=== PATIENT | female | born 1960 | race Asian ===

== ENCOUNTER 2019-01-10 08:28 | Emergency (ER) | payer OTHER ==
[~2019-01-10] VITALS: Ht 157.5 cm; Wt 59.9 kg
[2019-01-10] MEDS ORDERED: KETOROLAC 15 MG/ML VIAL. IVP ONE (08:45)
[2019-01-10] MEDS ORDERED: IV NORMAL SALINE 1,000ML 1,000 ML IV ONE ×2 (08:45→10:45)
[2019-01-10] MEDS ORDERED: ONDANSETRON PF 4 MG/2 ML VIAL. IVP ONE (08:45)
[2019-01-10] MEDS ORDERED: FAMOTIDINE 20 MG/2 ML VIAL IVP ONE (08:45)
[2019-01-10 08:58] LABS: BASO % 0 % (0-3); EOS % 1 % (0-3); HEMATOCRIT 44.1 % (36.0-47.0); HEMOGLOBIN 14.6 g/dL (12.0-15.5); LYMPH # 0.7 x10^3/uL (1.0-4.8); LYMPH % 19 % (24-48); MEAN CORPUSCULAR HEMOGLOBIN 32 pg (25-35); MEAN CORPUSCULAR HGB CONC 33 g/dL (31-37); MEAN CORPUSCULAR VOLUME 96 fL (79-100); MONO # 0.2 x10^3/uL (0.0-1.1); MONO % 5 % (0-9); NEUT # 2.9 x10^3uL (1.8-7.7); NEUT % 75 % (31-73); PLATELET COUNT 247 x10^3/uL (140-400); RED BLOOD COUNT 4.59 x10^6/uL (3.50-5.40); RED CELL DISTRIBUTION WIDTH 13.4 % (11.5-14.5); WHITE BLOOD COUNT 3.9 x10^3/uL (4.0-11.0)
[2019-01-10] MEDS ORDERED: IOHEXOL 300 MG/ML 75 ML VIAL. IV ONE (09:15)
[2019-01-10 09:21] LABS: ALBUMIN 4.1 g/dL (3.4-5.0); ALBUMIN/GLOBULIN RATIO 1.1 (1.0-1.7); CALCIUM 9.1 mg/dL (8.5-10.1); CREATININE 0.8 mg/dL (0.6-1.0); GFR 73.7; MAGNESIUM 2.1 mg/dL (1.8-2.4); POTASSIUM 3.7 mmol/L (3.5-5.1); TOTAL BILIRUBIN 0.5 mg/dL (0.2-1.0)
--- NOTE | 2019-01-10 09:53 | RAD ---
Examination: CT ABD PELV W/ IV CONTRST ONLY History: Abdominal pain Comparison/Correlation: None Findings: Axial images of the abdomen and pelvis were obtained following IV contrast. Sagittal and coronal reformatted images were provided. Motion limits evaluation especially at the upper abdominal level. Mild dependent atelectasis is present. At the right hepatic dome posteriorly, there is a 1.3 cm x 1 cm hypoenhancing lesion. Very small to characterize slightly hypoenhancing lesion involving the right hepatic dome measuring 0.5 cm diameter on axial image 30 of series 2. There are 2 additional low-attenuation lesions more inferiorly within the right hepatic lobe with the larger of these measuring slightly under 0.9 cm diameter. Spleen, pancreas, adrenal glands, and kidneys are normal. No extraluminal gas. No bowel obstruction. No ascites or pelvic free fluid. Appendix is normal. Uterus is unremarkable. Urinary bladder is unremarkable. Moderate L3-4 disc space narrowing is present. Concentric disc bulge at L4-5 is present. Impression: Liver lesions are present. The largest of these at the hepatic dome superiorly may represent a cyst or hemangioma. Other lesions are too small for characterization. Correlate with prior exams if available to assess stability. If stability is unknown, consider MRI of the liver without and with contrast for more definitive assessment. PQRS Compliance Statement: One or more of the following individualized dose reduction techniques were utilized for this examination: 1. Automated exposure control 2. Adjustment of the mA and/or kV according to patient size 3. Use of iterative reconstruction technique Electronically signed by: Kenney Melton MD (01/10/2019 9:50 AM) [facility]
--- NOTE | 2019-01-10 09:59 | PHYS DOC ---
Past History Past Medical History: No Pertinent History Past Surgical History: Smoking: Non-smoker Alcohol Use: None Drug Use: None Adult General Chief Complaint Chief Complaint: ABDOMINAL PAIN HPI HPI 59-year-old female presents with one-day history of diffuse abdominal pain with associated nausea and vomiting. Denies fever. Denies known sick contacts. Denies trauma. Review of Systems Review of Systems Constitutional: Denies fever or chills Eyes: Denies redness or eye pain HENT: Denies nasal congestion or sore throat Respiratory: Denies cough or shortness of breath Cardiovascular: Denies chest pain or palpitations GI: Reports diffuse abdominal pain, nausea, and vomiting : Denies dysuria or hematuria Musculoskeletal: Denies back pain or joint pain Integument: Denies rash or skin lesions Neurologic: Denies headache, focal weakness or sensory changes Complete systems were reviewed and found to be within normal limits, except as documented in this note. Current Medications Current Medications Current Medications Medications (Trade) Dose Ordered Sig/Isabella Start Time Stop Time Status Last Admin Dose Admin Diphenhydramine HCl (Benadryl) 25 mg 1X ONCE 01/10/19 10:20 01/10/19 10:21 Famotidine (Pepcid Vial) 20 mg 1X ONCE 01/10/19 08:45 01/10/19 08:57 DC 01/10/19 08:56 20 MG Iohexol (Omnipaque 300 Mg/ml) 75 ml 1X ONCE 01/10/19 09:15 01/10/19 09:16 DC 01/10/19 09:33 75 ML Ketorolac Tromethamine (Toradol 15mg Vial) 15 mg 1X ONCE 01/10/19 08:45 01/10/19 08:57 DC 01/10/19 08:55 15 MG Metoclopramide HCl (Reglan Vial) 10 mg 1X ONCE 01/10/19 10:20 01/10/19 10:21 Ondansetron HCl (Zofran) 4 mg 1X ONCE 01/10/19 08:45 01/10/19 08:57 DC 01/10/19 08:55 4 MG Sodium Chloride 1,000 ml @ 1,000 mls/hr 1X ONCE 01/10/19 08:45 01/10/19 09:44 DC 01/10/19 08:45 1,000 MLS/HR Allergies Allergies Allergies Coded Allergies Type Severity Reaction Last Updated Verified No Known Drug Allergies 01/10/19 No Physical Exam Physical Exam Constitutional: Well developed, well nourished, no acute distress, non-toxic appearance HENT: Normocephalic, atraumatic, oropharynx moist Eyes: Conjunctiva normal, no discharge Neck: Normal range of motion, no tenderness, supple Cardiovascular: Heart rate normal, regular rhythm Lungs & Thorax: Bilateral breath sounds clear to auscultation, no wheezing Abdomen: Soft, no tenderness Skin: Warm, dry, no erythema, no rash Back: No tenderness, no CVA tenderness Extremities: No tenderness, ROM intact, no edema Neurologic: Alert and oriented X 3, no focal deficits noted Psychologic: Affect normal, judgement normal Current Patient Data Vital Signs Vital Signs Date Time Temp Pulse Resp B/P (MAP) Pulse Ox O2 Delivery O2 Flow Rate FiO2 01/10/19 09:45 55 18 156/66 (96) 97 Room Air 01/10/19 08:47 97.5 Lab Results Laboratory Tests Test 01/10/19 08:45 White Blood Count 3.9 x10^3/uL (4.0-11.0) L Red Blood Count 4.59 x10^6/uL (3.50-5.40) Hemoglobin 14.6 g/dL (12.0-15.5) Hematocrit 44.1 % (36.0-47.0) Mean Corpuscular Volume 96 fL (79-100) Mean Corpuscular Hemoglobin 32 pg (25-35) Mean Corpuscular Hemoglobin Concent 33 g/dL (31-37) Red Cell Distribution Width 13.4 % (11.5-14.5) Platelet Count 247 x10^3/uL (140-400) Neutrophils (%) (Auto) 75 % (31-73) H Lymphocytes (%) (Auto) 19 % (24-48) L Monocytes (%) (Auto) 5 % (0-9) Eosinophils (%) (Auto) 1 % (0-3) Basophils (%) (Auto) 0 % (0-3) Neutrophils # (Auto) 2.9 x10^3uL (1.8-7.7) Lymphocytes # (Auto) 0.7 x10^3/uL (1.0-4.8) L Monocytes # (Auto) 0.2 x10^3/uL (0.0-1.1) Eosinophils # (Auto) 0.0 x10^3/uL (0.0-0.7) Basophils # (Auto) 0.0 x10^3/uL (0.0-0.2) Sodium Level 140 mmol/L (136-145) Potassium Level 3.7 mmol/L (3.5-5.1) Chloride Level 103 mmol/L (98-107) Carbon Dioxide Level 24 mmol/L (21-32) Anion Gap 13 (6-14) Blood Urea Nitrogen 16 mg/dL (7-20) Creatinine 0.8 mg/dL (0.6-1.0) Estimated GFR (Cockcroft-Gault) 73.7 BUN/Creatinine Ratio 20 (6-20) Glucose Level 159 mg/dL (70-99) H Lactic Acid Level 2.1 mmol/L (0.4-2.0) H Calcium Level 9.1 mg/dL (8.5-10.1) Magnesium Level 2.1 mg/dL (1.8-2.4) Total Bilirubin 0.5 mg/dL (0.2-1.0) Aspartate Amino Transferase (AST) 32 U/L (15-37) Alanine Aminotransferase (ALT) 19 U/L (14-59) Alkaline Phosphatase 73 U/L (46-116) Total Protein 8.0 g/dL (6.4-8.2) Albumin 4.1 g/dL (3.4-5.0) Albumin/Globulin Ratio 1.1 (1.0-1.7) Lipase 201 U/L (73-393) EKG EKG [] Radiology/Procedures Radiology/Procedures PROCEDURE: CT ABD PELV W/ IV CONTRST ONLY Examination: CT ABD PELV W/ IV CONTRST ONLY History: Abdominal pain Comparison/Correlation: None Findings: Axial images of the abdomen and pelvis were obtained following IV contrast. Sagittal and coronal reformatted images were provided. Motion limits evaluation especially at the upper abdominal level. Mild dependent atelectasis is present. At the right hepatic dome posteriorly, there is a 1.3 cm x 1 cm hypoenhancing lesion. Very small to characterize slightly hypoenhancing lesion involving the right hepatic dome measuring 0.5 cm diameter on axial image 30 of series 2. There are 2 additional low-attenuation lesions more inferiorly within the right hepatic lobe with the larger of these measuring slightly under 0.9 cm diameter. Spleen, pancreas, adrenal glands, and kidneys are normal. No extraluminal gas. No bowel obstruction. No ascites or pelvic free fluid. Appendix is normal. Uterus is unremarkable. Urinary bladder is unremarkable. Moderate L3-4 disc space narrowing is present. Concentric disc bulge at L4-5 is present. Impression: Liver lesions are present. The largest of these at the hepatic dome superiorly may represent a cyst or hemangioma. Other lesions are too small for characterization. Correlate with prior exams if available to assess stability. If stability is unknown, consider MRI of the liver without and with contrast for more definitive assessment. PQRS Compliance Statement: One or more of the following individualized dose reduction techniques were utilized for this examination: 1. Automated exposure control 2. Adjustment of the mA and/or kV according to patient size 3. Use of iterative reconstruction technique Electronically signed by: Kenney Melton MD (01/10/2019 9:50 AM) [facility] Course & Med Decision Making Course & Med Decision Making Pertinent Labs and Imaging studies reviewed. (See chart for details) Patient presents with diffuse abdominal pain with associated nausea and vomiting. Symptomatic treatment provided. IV fluid hydration given. Labs obtained and posted to chart. CT abdomen/pelvis without acute surgical abnormality. Incidental liver lesion/cysts noted. Patient stable for discharge with outpatient follow-up with PCP/GI. Discussed findings and plan with patient and family, who acknowledge understanding and agreement. Dragon Disclaimer Dragon Disclaimer This electronic medical record was generated, in whole or in part, using a voice recognition dictation system. Departure Departure: Impression: Primary Impression: Abdominal pain Additional Impression: Vomiting Disposition: 01 HOME, SELF-CARE Condition: STABLE Referrals: PCP,UNKNOWN (PCP) Patient Instructions: Abdominal Pain (Nonspecific), Clear Liquid Diet, [id number], Diet for Diarrhea, Adult, Nausea and Vomiting, [id number] Scripts Hyoscyamine Sulfate (LEVSIN-SL) 0.125 Mg Tab.subl 0.125 MG SL Q4-6HRS PRN for PAIN, #20 TAB Prov: YAZMIN MADRIGAL DO 01/10/19 Famotidine (PEPCID) 20 Mg Tablet 1 TAB PO BID for gastritis for 5 Days, #10 TAB Prov: YAZMIN MADRIGAL DO 01/10/19 Ondansetron (ONDANSETRON ODT) 4 Mg Tab.rapdis 1 TAB PO PRN Q6-8HRS PRN for NAUSEA, #16 TAB Prov: YAZMIN MADRIGAL DO 01/10/19 Problem Qualifiers Primary Impression: Abdominal pain Abdominal location: generalized Qualified Codes: R10.84 - Generalized abdominal pain Additional Impression: Vomiting Vomiting type: unspecified Vomiting Intractability: unspecified Nausea presence: with nausea Qualified Codes: R11.2 - Nausea with vomiting, unspecified YAZMIN MADRIGAL DO Jan 10, 2019 09:59
[2019-01-10 10:12] LABS: BACTERIA,URINE FEW /HPF (0-FEW); BILIRUBIN,URINE NEG (NEG); CLARITY,URINE HAZY; COLOR,URINE AMBER; GLUCOSE,URINE NEG (NEG); HYALINE CASTS, URINE FEW /HPF; NITRITE,URINE NEG (NEG); SQUAMOUS EPITHELIAL CELL,UR FEW /LPF; UROBILINOGEN,URINE 0.2 mg/dL (0.2 mg/dL)
[2019-01-10 10:13] LABS: GRANULAR CASTS,URINE OCC /HPF
[2019-01-10] MEDS ORDERED: METOCLOPRAMIDE HCL 10 MG/2 ML VIAL. IVP ONE (10:20)
[2019-01-10] MEDS ORDERED: diphenhydrAMINE 50 MG/ML VIAL IVP ONE (10:20)
[2019-01-10] MEDS ORDERED: HYOS0.1265 SL (11:58)
[2019-01-10] MEDS ORDERED: FAMO-63 PO (11:58)
[2019-01-10] MEDS ORDERED: ONDA4TAB12 PO (11:58)
[2019-01-10 12:02] VITALS: BP 95/58
== END 2019-01-10 12:07 | disposition home or self-care (01) ==
LOC: ER 08:28
DX: R10.84 Generalized abdominal pain (principal); R11.2 Nausea with vomiting, unspecified; Z98.890 Other specified postprocedural states
CPT/HCPCS: 36415; 74177; 80053; 81001; 83605; 83690; 83735; 85025; 96361; 96374; 96375; 99285; J1200; J1885; J2405; J2765; J3490; Q9967; J7030

== ENCOUNTER 2020-09-04 22:18 | Emergency (ER) | payer OTHER ==
[~2020-09-04] VITALS: Ht 149.9 cm; Wt 59.6 kg
[~2020-09-04 22:18] MED LIST: FAMO-63 PO; HYOS0.1265 SL; ONDA4TAB12 PO
[2020-09-04] MEDS ORDERED: ONDANSETRON PF 4 MG/2 ML VIAL. IVP ONE (23:00)
[2020-09-04] MEDS ORDERED: IV NORMAL SALINE 1,000ML 1,000 ML IV ONE (23:00)
[2020-09-04] MEDS ORDERED: IOHEXOL 300 MG/ML 75 ML VIAL. IV ONE (23:15)
[2020-09-04] MEDS ORDERED: CONTRAST GIVEN. MC PRN (23:15)
--- NOTE | 2020-09-04 23:17 | PHYS DOC ---
Past History Past Medical History: No Pertinent History Past Surgical History: Smoking: Non-smoker Alcohol Use: None Drug Use: None General Adult EDM: Chief Complaint: DIZZY/LIGHT HEADED HPI: HPI: 60-year-old female who speaks Uzbek presents with dizziness, decreased appetite, nausea and vomiting. The patient's daughter provides interpretation. The patient has been having on and off nausea, vomiting and headaches for a few weeks. She was seen at the local clinic today and diagnosed with hypertension. She was started on lisinopril today. The patient had episodes of nausea and vomiting today. She is also felt dizzy which she describes as an off-balance feeling. She has had some chills but no measured fever. She has had some increased urinary frequency. She has had decreased solid and liquid intake because of how she feels. She has not been worked up for her headaches or change in appetite. Review of Systems: Review of Systems: Constitutional: Denies fever or chills Eyes: Denies change in visual acuity HENT: Denies nasal congestion or sore throat Respiratory: Denies cough or shortness of breath Cardiovascular: Denies chest pain or edema GI: Denies abdominal pain, nausea, vomiting, bloody stools or diarrhea : Denies dysuria Musculoskeletal: Denies back pain or joint pain Integument: Denies rash Neurologic: Denies headache, focal weakness or sensory changes Endocrine: Denies polyuria or polydipsia Lymphatic: Denies swollen glands Psychiatric: Denies depression or anxiety Current Medications: Current Meds: Current Medications Medications (Trade) Dose Ordered Sig/[facility] Start Time Stop Time Status Last Admin Dose Admin Ondansetron HCl (Zofran) 4 mg 1X ONCE 09/04/20 23:00 09/04/20 23:01 DC Sodium Chloride 1,000 ml @ 1,000 mls/hr 1X ONCE 09/04/20 23:00 09/04/20 23:59 Allergies: Allergies: Allergies Coded Allergies Type Severity Reaction Last Updated Verified No Known Drug Allergies 01/10/19 No Physical Exam: PE: Constitutional: Well developed, well nourished, no acute distress, non-toxic appearance. [] HENT: Normocephalic, atraumatic, bilateral external ears normal, oropharynx moist, no oral exudates, nose normal. [] Eyes: PERRLA, EOMI, conjunctiva normal, no discharge. [] Neck: Normal range of motion, no tenderness, supple, no stridor. [] Cardiovascular:Heart rate regular rhythm, no murmur [] Lungs & Thorax: Bilateral breath sounds clear to auscultation [] Abdomen: Bowel sounds normal, soft, no tenderness, no masses, no pulsatile masses. [] Skin: Warm, dry, no erythema, no rash. [] Back: No tenderness, no CVA tenderness. [] Extremities: No tenderness, no cyanosis, no clubbing, ROM intact, no edema. [] Neurologic: Alert and oriented X 3, normal motor function, normal sensory function, no focal deficits noted. [] Psychologic: Affect normal, judgement normal, mood normal. [] EKG: EKG: Sinus rhythm, rate 58, normal axis, no ST elevation or depression. [] Radiology/Procedures: Radiology/Procedures: [] Impressions: CT ABDOMEN+PELVIS W History: Reason: OMNI 300,75ML IV.Epigastric pain / Technique: After the administration of intravenous contrast, CT imaging was performed of the abdomen and pelvis. Multiplanar images are reviewed. Exposure: One or more of the following individualized dose reduction techniques were utilized for this examination: 1. Automated exposure control 2. Adjustment of the mA and/or kV according to patient size 3. Use of iterative reconstruction technique. Comparison: January 10, 2019 Findings: Motion degraded examination. Lower chest: Right middle lobe linear atelectasis. Abdomen and pelvis: Small right hepatic lobe lesions, unchanged and not well evaluated due to patient motion. The spleen, adrenal glands, and pancreas are unremarkable. Contracted gallbladder. No biliary ductal dilatation. Patent main portal vein. No hydronephrosis. No renal calculi. Normal appearance of the urinary bladder. Normal appendix. No evidence of bowel obstruction. No pathologic lymphadenopathy. No ascites. Bones: No pathologic osseous lesions. Impression: 1. Degraded evaluation due to patient motion. 2. No acute abdominal or pelvic pathology. 3. Unchanged hepatic lesions although evaluation is degraded. Electronically signed by: Clint Gregory DO (09/05/2020 12:18 AM) [facility] DICTATED AND SIGNED BY: CLINT GREGORY DO DATE: 09/05/2010 CC: SHAUN WEBSTER DO; PAMELA LUIS DO ~MTH0 0 XR CHEST 1V History: Reason: dizziness / Spl. Instructions: / History: Comparison: None. Findings: No consolidation or pleural effusion. Normal heart size. No pneumothorax. Impression: 1. No acute cardiopulmonary process. Electronically signed by: Clint Gregory DO (09/05/2020 12:49 AM) [facility] DICTATED AND SIGNED BY: CLINT GREGORY DO DATE: 09/05/20 0049 CC: SHAUN WEBSTER DO; PAMELA LUIS DO ~MTH0 0 Heart Score: C/O Chest Pain: N/A Risk Factors: Risk Factors: DM, Current or recent (<one month) smoker, HTN, HLP, family history of CAD, obesity. Risk Scores: Score 0 - 3: 2.5% MACE over next 6 weeks - Discharge Home Score 4 - 6: 20.3% MACE over next 6 weeks - Admit for Clinical Observation Score 7 - 10: 72.7% MACE over next 6 weeks - Early Invasive Strategies Course & Med Decision Making: Course & Med Decision Making Pertinent Labs and Imaging studies reviewed. (See chart for details) The patient's EKG is unremarkable. Her labs are unremarkable. Her troponin is within normal limits for our lab. Her CT scan is negative for acute findings. Her chest x-ray is negative for acute findings. We have given the patient liter normal saline, 4 mg of Zofran, and 10 mg of Reglan. Not sure exactly what is going on with the patient. I do not see any concerning results. This could be viral illness. Headache syndrome could be unrelated. That has not been her primary concern today. I have advised that the patient follow-up with her primary physician and discuss neurology consult. She is stable for discharge at this time. [] Dragon Disclaimer: Zack Disclaimer: This electronic medical record was generated, in whole or in part, using a voice recognition dictation system. Departure Departure: Impression: Primary Impression: Dizziness Additional Impression: Viral syndrome Disposition: HOME / SELF CARE / HOMELESS Condition: STABLE Referrals: SHAUN WEBSTER DO (PCP) Patient Instructions: Dizziness, [id number], Nausea and Vomiting, [id number] PAMELA LUIS DO Sep 04, 2020 23:17
[2020-09-04 23:20] LABS: BACTERIA,URINE FEW /HPF (0-FEW); BILIRUBIN,URINE NEG (NEG); CLARITY,URINE CLEAR; COLOR,URINE STRAW; GLUCOSE,URINE NEG (NEG); NITRITE,URINE NEG (NEG); SQUAMOUS EPITHELIAL CELL,UR FEW /LPF; UROBILINOGEN,URINE 0.2 mg/dL (0.2 mg/dL); WBC,URINE 0 /HPF (0-4)
[2020-09-04 23:34] LABS: BASO % 1 % (0-3); EOS % 0 % (0-3); HEMATOCRIT 41.2 % (36.0-47.0); LYMPH # 1.6 x10^3/uL (1.0-4.8); LYMPH % 24 % (24-48); MEAN CORPUSCULAR HEMOGLOBIN 33 pg (25-35); MEAN CORPUSCULAR HGB CONC 34 g/dL (31-37); MEAN CORPUSCULAR VOLUME 96 fL (79-100); MONO # 0.4 x10^3/uL (0.0-1.1); MONO % 6 % (0-9); NEUT # 4.7 x10^3uL (1.8-7.7); NEUT % 70 % (31-73); PLATELET COUNT 261 x10^3/uL (140-400); RED BLOOD COUNT 4.28 x10^6/uL (3.50-5.40); WHITE BLOOD COUNT 6.7 x10^3/uL (4.0-11.0)
--- NOTE | 2020-09-04 23:46 | EKG ---
[address] [address] Test Date: 2020-09-04 Test Time: 22:53:55 Pat Name: TAMIA URIBE Department: Room: Gender: F [employer]: ELE : 1960 Requested By: PAMELA LUIS Order Number: [id number] Reading MD: Measurements Intervals [place] Rate: 58 P: 0 NE: 178 QRS: 39 QRSD: 88 T: 64 QT: 452 QTc: 448 Interpretive Statements SINUS RHYTHM NORMAL ECG RI6.02 No previous ECG available for comparison
[2020-09-04 23:51] LABS: ALBUMIN 4.4 g/dL (3.4-5.0); ALBUMIN/GLOBULIN RATIO 1.2 (1.0-1.7); CREATININE 0.7 mg/dL (0.6-1.0); GFR 85.4; TOTAL BILIRUBIN 0.5 mg/dL (0.2-1.0)
--- NOTE | 2020-09-05 00:20 | RAD ---
CT ABDOMEN+PELVIS W History: Reason: OMNI 300,75ML IV.Epigastric pain / Technique: After the administration of intravenous contrast, CT imaging was performed of the abdomen and pelvis. Multiplanar images are reviewed. Exposure: One or more of the following individualized dose reduction techniques were utilized for thi s examination: 1. Automated exposure control 2. Adjustment of the mA and/or kV according to patient size 3. Use of iterative reconstruction technique. Comparison: January 10, 2019 Findings: Motion degraded examination. Lower chest: Right middle lobe linear atelectasis. Abdomen and pelvis: Small right hepatic lobe lesions, unchanged and not well evaluated due to patient motion. The spleen, adrenal glands, and pancreas are unremarkable. Contracted gallbladder. No biliar y ductal dilatation. Patent main portal vein. No hydronephrosis. No renal calculi. Normal appearance of the urinary bladder. Normal appendix. No evidence of bowel obstruction. No pathologic lymphadenopathy. No ascites. Bones: No pathologic osseous lesions. Impression: 1. Degraded evaluation due to patient motion. 2. No acute abdominal or pelvic pathology. 3. Unchanged hepatic lesions although evaluation is degraded. Electronically signed by: Clint Almendarez DO (09/05/2020 12:18 AM) [facility]
[2020-09-05] MEDS ORDERED: POTASSIUM CHLORIDE 20 MEQ TABLET.ER. PO ONE (00:30)
--- NOTE | 2020-09-05 00:52 | RAD ---
XR CHEST 1V History: Reason: dizziness / Spl. Instructions: / History: Comparison: None. Findings: No consolidation or pleural effusion. Normal heart size. No pneumothorax. Impression: 1. No acute cardiopulmonary process. Electronically signed by: Clint Almendarez DO (09/05/2020 12:49 AM) [facility]
[2020-09-05] MEDS ORDERED: METOCLOPRAMIDE HCL 10 MG/2 ML VIAL. IVP ONE (01:00)
[2020-09-05] MEDS ORDERED: MECLIZINE 12.5 MG TABLET. PO ONE (01:30)
[2020-09-05 02:05] VITALS: BP 114/70
== END 2020-09-05 02:28 | disposition home or self-care (01) ==
LOC: ER 22:18
DX: R42 Dizziness and giddiness (principal); B34.9 Viral infection, unspecified; I10 Essential (primary) hypertension
CPT/HCPCS: 36415; 71045; 74177; 80053; 81001; 83690; 84484; 85025; 93005; 96361; 96374; 96375; 99285; J2405; J2765; J7030; Q9967